=== PATIENT | female | born 1985 | race African-American/Black ===

== ENCOUNTER 2017-08-09 17:44 | Emergency (ER) | payer OTHER ==
[~2017-08-09] VITALS: Ht 167.6 cm; Wt 116.7 kg
[2017-08-09 17:47] VITALS: TEMP 36.8; Ht 167.6 cm; Wt 116.7 kg
[2017-08-09] MEDS ORDERED: KETOROLAC TROMETHAMINE 60 MG/2 ML VIAL IM STA (17:55)
[2017-08-09] MEDS ORDERED: HYDROCODONE/ACETAMOPHEN 5/325MG TAB PO STA (17:55)
[2017-08-09] MEDS ORDERED: CYCLOBENZAPRINE HCL 10 MG TAB PO STA (17:55)
--- NOTE | 2017-08-09 18:29 | EMERGENCY ROOM VISIT NOTE ---
ED Visit Note First contact with patient: 17:51 CHIEF COMPLAINT: Low back pain HISTORY OF PRESENT ILLNESS: This 31-year-old female presents the ER with chief complaint of low back pain. The patient states that she woke up yesterday with the back pain. She states it is worse with movement. She denies any pain radiating down her legs or any numbness and tingling in her lower extremities. The patient denies any loss of bowel or bladder control or any saddle anesthesia. The patient denies any urinary symptoms. The patient denies any known injury although she does admit to lifting a box of blood or the day before at work. She does not know if this is what caused the pain. She took ibuprofen 800 mg at home without any relief of the pain. She currently rates the pain at a 9 out of 10. REVIEW OF SYSTEMS: 6 system review was performed and was negative unless stated otherwise in history of present illness. PMH: The patient is healthy; cholecystectomy, skin problems, milk ducts removed SOCIAL HISTORY: Patient admits to tobacco use but denies any alcohol use. PHYSICAL EXAM: Vital Signs normal: Reviewed Nurse's notes and agree. GEN.: 31- year-old obese female appears in no acute distress. MENTAL STATUS: Alert and oriented 3 LUMBAR SPINE: No gross bony abnormality noted. Patient is nontender to palpation over the spinous processes. She is nontender tender to palpation over the spinous processes but tender to palpation in the paravertebral regions left greater than right. The patient has full range of motion of the lumbar spine with pain elicited with flexion and left lateral bending and left rotation. Muscle strength is 5 out of 5 bilateral lower extremities and symmetrical. NEURO: Patient is able to heel and toe walk without difficulty. I lateral patellar and Achilles reflexes are 2+. Sensation is intact to pinprick bilateral lower extremities. Negative straight leg raise bilaterally. EMERGENCY DEPARTMENT COURSE: The patient was evaluated. The patient was given Toradol 60 mg IM, Flexeril 10 mg by mouth and [place] 5/325 mg 2 tablets by mouth for pain. The patient was reevaluated and was feeling much better. The patient was discharged home with a friend driving.. DIAGNOSIS: Lumbar strain DISCHARGE INSTRUCTIONS AND TREATMENT: Ibuprofen 600 mg every 6 hours with food for pain. Rx is given for [place] 5/325 mg. 1-2 tablets every 6 hours as needed for more severe pain. Dispense [address] taking the [place]. Patient was also given Rx for Flexeril 10 mg. One tablet p.o. every 8 hours for muscle spasms. Dispense [address] taking the Flexeril. Avoid staying in any one position for an extended period of time. If symptoms persist or worsen, follow up with your family doctor for referral for additional testing. Current/Historical Medications No Active Prescriptions or Reported Meds Allergies Coded Allergies: No Known Allergies (Unverified , 08/09/17) Vital Signs Date Time Temp Pulse Resp B/P (MAP) Pulse Ox O2 Delivery O2 Flow Rate FiO2 08/09/17 17:47 36.8 109 17 136/81 99 Room Air Medications Administered Medications (Trade) Dose Ordered Sig/Sravani Route Start Time Stop Time Status Last Admin Dose Admin Cyclobenzaprine HCl (Flexeril Tab) 10 mg NOW STAT PO 08/09/17 17:55 08/09/17 17:56 DC 08/09/17 18:03 10 MG Ketorolac Tromethamine (Toradol Inj) 60 mg NOW STAT IM 08/09/17 17:55 08/09/17 17:56 DC 08/09/17 18:04 60 MG Acetaminophen/ Hydrocodone Bitart ([place] 5/325 Tab) 2 tab NOW STAT PO 08/09/17 17:55 08/09/17 17:57 DC 08/09/17 18:04 2 TAB Departure Information Prescriptions No Active Prescriptions or Reported Meds Referrals No Doctor, Assigned (PCP) Patient Instructions [facility]
[2017-08-09] MEDS ORDERED: CYCL10TA6 PO (18:31)
[2017-08-09] MEDS ORDERED: HYDR-5688 PO (18:31)
[2017-08-09 18:44] VITALS: BP 118/81; PULSE 86; O2SAT 99
== END 2017-08-09 18:46 | disposition home or self-care (01) ==
LOC: C.EDB 17:45 → C.EDD 18:46
DX: S39.012A Strain of muscle, fascia and tendon of lower back, initial encounter (principal); X58.XXXA Exposure to other specified factors, initial encounter; F17.200 Nicotine dependence, unspecified, uncomplicated

== ENCOUNTER 2017-08-20 22:23 | Emergency (ER) | payer OTHER ==
[~2017-08-20] VITALS: Ht 167.6 cm; Wt 116.5 kg
[~2017-08-20 22:23] MED LIST: HYDR-5688 PO
[2017-08-20 22:29] VITALS: BP 163/113; PULSE 87; TEMP 37.4; O2SAT 99; Ht 167.6 cm; Wt 116.5 kg
[2017-08-20] MEDS ORDERED: XYLOCAINE 1%/SOD BICARB 20 ML VIAL INFIL ONE (23:00)
--- NOTE | 2017-08-20 23:22 | EMERGENCY ROOM VISIT NOTE ---
ED Visit Note First contact with patient: 22:33 CHIEF COMPLAINT: Infection of the right labia HISTORY OF PRESENT ILLNESS: This 31-year-old female patient presents to the emergency department 2 days after they noticed a hard, red, tender area on the right labia. It is slowly getting larger, more painful and tender. No fever, chills, or loss of appetite. There has been no drainage from the area. There was no injury to the area preceding the infection. They rate the pain as sharp and 7/10. Tetanus shot is up to date. The patient was seen at urgent care 2 days ago, and was told that she did not need antibiotics, and states urgent care told her that they would not drain an abscess in that area, as it is too sensitive. The patient was advised to complete warm soaks at home and follow up outpatient. The patient states she has been doing some soaks, but they have not been helping significantly. The patient presents today desiring drainage of the wound. She states urgent care advised her to come here to the emergency department to have this procedure performed. The patient is not diabetic. The patient has no history of subcutaneous abscesses. 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 She states she recently moved to the [facility]. She has had no systemic symptoms including fever, chills, nausea, vomiting, body aches, fatigue, or others. REVIEW OF SYSTEMS: A 6 system review of systems was performed with positives and pertinent negatives listed in the history of present illness. All other systems were reviewed and are negative. ALLERGIES: None MEDICATIONS: None PMH: None SOCIAL HISTORY: Lives locally. She denies drug, alcohol use. She admits to smoking one pack of cigarettes per day. PHYSICAL EXAM: Vital Signs: Reviewed Nurse's notes, vital signs stable. GENERAL : This is a 31-year-old obese black female, no acute distress, non toxic in appearance, well-developed well-nourished. SKIN: There is an erythematous indurated area on the right labia which measures about 0.5 cm in diameter. It is fluctuant but there is no pointing or drainage. There is a mild zone of inflammation around it but no lymphangitis. Capillary refill less than 2 seconds. EMERGENCY DEPARTMENT COURSE: I examined the patient. Verbal consent was obtained to perform the procedure. After saline and Betadine cleansing and 1 mL of 1% buffered lidocaine anesthesia, the abscess was incised with a number 11 scalpel blade. A small amount of purulent material was released with more expressed by pressure. There was not enough drainage to obtain a culture. The abscess cavity was further probed with a needle motorcoach driver and the deep pocket expressed. The abscess cavity was then copiously irrigated with sterile saline under pressure. The area was cleaned with sterile saline and dressed with bacitracin and a gynecological pad. The patient tolerated the procedure well. The patient was discharged home in stable condition. She was encouraged to follow up closely with her newspaper carriers supervisor outpatient. 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 I advised her that she could work, and encouraged her to wear a pad and change it frequently to keep the area clean and dry. I did provide the patient with a work note for tonight, but did advise her that she could go to work tomorrow. Again, I did encourage the patient to take plenty of menstrual pads, and change them frequently to prevent the moisture from worsening an infection. I attest that I have personally reviewed the patient's current medication list. Blood Pressure Screening: Patient was found to have a slightly elevated blood pressure due to circumstances. I do not believe that the patient requires hypertension monitoring. DIFFERENTIAL DIAGNOSIS: Bartholin's cyst, abscess, cellulitis, STD, malignancy, and others DIAGNOSIS: Bartholin's cyst with infection Current/Historical Medications No Active Prescriptions or Reported Meds Allergies Coded Allergies: No Known Allergies (Unverified , 08/20/17) Vital Signs Date Time Temp Pulse Resp B/P (MAP) Pulse Ox O2 Delivery O2 Flow Rate FiO2 08/20/17 22:29 37.4 87 16 163/113 99 Room Air Departure Information Impression Primary Impression: Bartholin cyst Dispostion Home / Self-Care Condition GOOD Prescriptions No Active Prescriptions or Reported Meds Referrals Mary Puga PA-C (PCP) Mauricio Luciano D.O. Patient Instructions ED Bartholins Cyst Mohinder, My [facility] Additional Instructions You were seen in the emergency department today for a Bartholin's cyst. This was opened and drained. A very mild amount of purulent fluid and blood were expressed, but there does not seem to be any significant or severe infection. Please follow up with your newspaper carriers supervisor in 2-3 days for recheck and further management of the abscess. Please keep the area clean and dry. I do recommend changing gynecological pads every hour to keep the area clean. You may consider warm baths or Epsom soaks to help with pain and to help with drainage. Return to the emergency department for significant redness, pain, purulent drainage, fever, chills, nausea, vomiting, or other concerning symptoms.
== END 2017-08-20 23:28 | disposition home or self-care (01) ==
LOC: C.EDB 22:24 → C.EDC 23:28
DX: N75.1 Abscess of Bartholin's gland (principal); F17.210 Nicotine dependence, cigarettes, uncomplicated

== ENCOUNTER 2017-08-21 01:10 | Emergency (ER) | payer OTHER ==
[~2017-08-21] VITALS: Ht 167.6 cm; Wt 116.6 kg
[2017-08-21 01:17] VITALS: Ht 167.6 cm; Wt 116.6 kg
[2017-08-21] MEDS ORDERED: IBUPROFEN 600 MG TAB PO STA (01:29)
[2017-08-21 01:37] VITALS: BP 145/96; PULSE 97; TEMP 37; O2SAT 99
--- NOTE | 2017-08-21 23:51 | EMERGENCY ROOM VISIT NOTE ---
History First contact with patient: 01:18 Chief Complaint: WOUND RECHECK Stated Complaint: ABCESS CUT OPEN Nursing Triage Summary: pt had a bartholin cyst drained here 2 hours ago. c/o increased pain. History of Present Illness The patient is a 31 year old female who presents to the Emergency Room perivaginal pain after incision and drainage of a Bartholin's cyst roughly 3 hours ago. The patient is requesting a note for work today. Evidently after being discharged more than 2 hours ago from the emergency department she went to another room, where a friend is being seen, and has remained in the department. She was given a note for work for one day, but would like one for several days. She did take Tylenol about an hour ago. She rates her pain a 10/ 10. Review of Systems More than 10 systems were reviewed and otherwise negative with the exception of history of present illness. Past Medical/Surgical History No chronic medical disease Family History No pertinent family history Social History Smoking Status: Never Smoker Occupation Status: employed Current/Historical Medications No Active Prescriptions or Reported Meds Physical Exam Vital Signs Date Time Temp Pulse Resp B/P (MAP) Pulse Ox O2 Delivery O2 Flow Rate FiO2 08/21/17 01:37 37.0 97 20 145/96 99 08/21/17 01:17 37.0 97 20 145/96 99 Room Air Physical Exam VITALS: Vitals are noted on the nurse's note and reviewed by myself. Vital signs stable. GENERAL: Well-developed, well-nourished, black female, who is in no acute distress and resting comfortably. Patient is cooperative with the examination. HEART: Regular rate and rhythm without murmurs gallops or rubs. LUNGS: Clear to auscultation bilaterally without wheezes, rales or rhonchi. No retractions or accessory muscle use. ABDOMEN: Positive normal bowel sounds x 4. Soft, nontender, without masses or organomegaly. No guarding or rebound tenderness. NEURO: Patient was alert and oriented to person place and time. CN II through XII grossly intact. Medical Decision & Procedures Medications Administered Medications (Trade) Dose Ordered Sig/Sravani Route Start Time Stop Time Status Last Admin Dose Admin Ibuprofen (Motrin Tab) 600 mg NOW STAT PO 08/21/17 01:29 08/21/17 01:30 DC 08/21/17 01:35 600 MG ED Course Physical exam and history were performed. Nursing notes, EMR, and Medication List were personally reviewed. Patient appears to have pain following incision and drainage of a Bartholin's cyst. The patient was given a work note from her visit a few hours ago, and she is essentially here requesting another note for work for a much longer period of time. I do not feel this is reasonable. I will provide her ibuprofen here in the department. 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 The chart was completed utilizing [employer] Speech Voice Recognition Software. Grammatical errors, random word insertions, pronoun errors, and incomplete sentences are an occasional consequence of this system due to software limitations, ambient noise, and hardware issues. Any formal questions or concerns about the content, text, or information contained within the body of this dictation should be directly addressed to the provider for clarification. . Medical Decision Differential diagnosis includes, but is not limited to: Bartholin's gland abscess, postprocedural pain, malingering, and others Impression Primary Impression: Encounter for wound re-check Departure Information Dispostion Home / Self-Care Condition GOOD Prescriptions No Active Prescriptions or Reported Meds Referrals No Doctor, Assigned (PCP) Forms HOME CARE DOCUMENTATION FORM, IMPORTANT VISIT INFORMATION Patient Instructions My [facility] Additional Instructions You were seen and evaluated today on an emergency basis only. This is not a substitute for, or an effort to provide, complete comprehensive medical care. It is not possible to recognize and treat all injuries or illnesses in a single emergency department visit. For this reason it is recommended that you followup with CASTING WHEEL OPERATOR HELPER with any ongoing or persistent symptoms. For baseline pain relief you may alternate ibuprofen and acetaminophen every 4 hours for pain control. Take 600 mg ibuprofen (Advil) and then 4 hours later take 1000 mg acetaminophen (Tylenol). Do not take more than 3000 mg acetaminophen in a single day. You are welcome to return to the emergency department anytime with new, worsening, or concerning symptoms.
== END 2017-08-21 01:38 | disposition home or self-care (01) ==
LOC: C.EDB 01:11 → C.EDA 01:38
DX: Z09 Encounter for follow-up examination after completed treatment for conditions other than malignant neoplasm (principal)

== ENCOUNTER 2017-09-13 21:59 | Emergency (ER) | payer OTHER ==
[~2017-09-13] VITALS: Ht 167.6 cm; Wt 114.1 kg
[2017-09-13 22:20] VITALS: TEMP 37; Ht 167.6 cm; Wt 114.1 kg
[2017-09-13] MEDS ORDERED: ACETAMINOPHEN 500 MG TAB PO STA (23:12)
--- NOTE | 2017-09-13 23:18 | EMERGENCY ROOM VISIT NOTE ---
History Report prepared by Raymundo: Domenico Bettencourt Under the Supervision of: Dr. Angelina Mendoza D.O. First contact with patient: 23:00 Chief Complaint: OTHER COMPLAINT Stated Complaint: LUMP BEHIND NIPPLE History of Present Illness The patient is a 31 year old female who presents to the Emergency Room with complaints of worsening pain in the left breast that began 4 days prior to arrival. When the patient's pain began she noticed a small lump "behind" her left nipple. Since she first experienced the pain it has progressively worsened , and the lump has grown. She estimates that the lump is now the size of a quarter. The lump is also warm to the touch. The patient had a similar issue in the past and notes that she had the lump drained in the Emergency Department. She has no family history of breast issues, but she has had a surgery in the past to remove a milk duct from each breast. She has had a mammogram that was unremarkable. The patient notes that she has not had a menstrual cycle in over nine months and is diagnosed with polycystic ovarian syndrome. Patient denies chance of . States she has never breast-fed. Source of History: patient Onset: 4 days prior to arrival Position: chest (left breast) Quality: other (lump in left breast) Timing: worsening Review of Systems See HPI for pertinent positives & negatives. A total of 10 systems reviewed and were otherwise negative. Past Medical & Surgical Surgical Problems: (1) breast duct excision (2) History of cholecystectomy Family History Diabetes mellitus FHx: cancer Hypertension Social History Smoking Status: Current Every Day Smoker Marital Status: single Housing Status: lives with friends Occupation Status: employed Current/Historical Medications Scheduled Cephalexin Monohydrate (Keflex), 500 MG PO QID Allergies Coded Allergies: No Known Allergies (Unverified , 09/13/17) Physical Exam Vital Signs Date Time Temp Pulse Resp B/P (MAP) Pulse Ox O2 Delivery O2 Flow Rate FiO2 09/14/17 01:33 62 20 118/72 98 Room Air 09/14/17 00:22 57 18 120/78 99 Room Air 09/13/17 22:20 37.0 77 20 136/86 100 Room Air Physical Exam GENERAL: Obese. alert, well appearing, well nourished, no distress, non-toxic EYE EXAM: normal conjunctiva, PERRL and EOM's grossly intact OROPHARYNX: no exudate, no erythema, lips, buccal mucosa, and tongue normal and mucous membranes are moist NECK: supple, no nuchal rigidity, no adenopathy, non-tender LUNGS: Clear to auscultation. Normal chest wall mechanics BREAST: RIGHT BREAST: Non-tender, no erythema, no discharge. No palpable masses. LEFT BREAST: There is tenderness along the inferior aspect of the areola between 5 and 7 o'clock. There is a 1-2 centimeter mass palpable along the inferior areola without discharge. NO overlying warmth. No erythema. Breast is otherwise unremarkable. No additional masses. There is no palpable axillary lymphadenopathy. HEART: no murmurs, S1 normal and S2 normal ABDOMEN: abdomen soft, non-tender, normo-active bowel sounds, no masses, no rebound or guarding. SKIN: no rashes and no bruising UPPER EXTREMITIES: upper extremities are grossly normal. LOWER EXTREMITIES: No pitting edema. NEURO EXAM: Normal sensorium Medical Decision & Procedures ER Provider Diagnostic Interpretation: Radiology results have been interpreted by the radiologist and reviewed by me. US OTHER -- BREAST LIMITED UNILATERAL: Indeterminate hypoechoic mass seein in region of palpable abnormality. No internal vascularity. Measures 1.9 x 0.6 x 2.3 cm. Hematoma and abscess are in the differential though ultimately indeterminate. Recommended follow-up. Radiologist: Martin Ventura M.D. Laboratory Results 09/13/17 23:27 Red Blood Count 5.42, Mean Corpuscular Volume 82.1, Mean Corpuscular Hemoglobin 27.1, Mean Corpuscular Hemoglobin Concent 33.0, Mean Platelet Volume 10.3, Neutrophils (%) (Auto) 57.1, Lymphocytes (%) (Auto) 31.5, Monocytes (%) (Auto) 5.8, Eosinophils (%) (Auto) 5.0, Basophils (%) (Auto) 0.3, Neutrophils # (Auto) 6.79, Lymphocytes # (Auto) 3.75, Monocytes # (Auto) 0.69, Eosinophils # (Auto) 0.59, Basophils # (Auto) 0.03 Test 09/13/17 23:27 White Blood Count 11.89 K/uL (4.8-10.8) Red Blood Count 5.42 M/uL (4.2-5.4) Hemoglobin 14.7 g/dL (12.0-16.0) Hematocrit 44.5 % (37-47) Mean Corpuscular Volume 82.1 fL (80-100) Mean Corpuscular Hemoglobin 27.1 pg (25-34) Mean Corpuscular Hemoglobin Concent 33.0 g/dl (32-36) Platelet Count 277 K/uL (130-400) Mean Platelet Volume 10.3 fL (7.4-10.4) Neutrophils (%) (Auto) 57.1 % Lymphocytes (%) (Auto) 31.5 % Monocytes (%) (Auto) 5.8 % Eosinophils (%) (Auto) 5.0 % Basophils (%) (Auto) 0.3 % Neutrophils # (Auto) 6.79 K/uL (1.4-6.5) Lymphocytes # (Auto) 3.75 K/uL (1.2-3.4) Monocytes # (Auto) 0.69 K/uL (0.11-0.59) Eosinophils # (Auto) 0.59 K/uL (0-0.5) Basophils # (Auto) 0.03 K/uL (0-0.2) RDW Standard Deviation 43.0 fL (36.4-46.3) RDW Coefficient of Variation 14.5 % (11.5-14.5) Immature Granulocyte % (Auto) 0.3 % Immature Granulocyte # (Auto) 0.04 K/uL (0.00-0.02) Laboratory results per my review. Medications Administered Medications (Trade) Dose Ordered Sig/Sravani Route Start Time Stop Time Status Last Admin Dose Admin Acetaminophen (Tylenol Tab) 1,000 mg NOW STAT PO 09/13/17 23:12 09/13/17 23:13 DC 09/13/17 23:19 1,000 MG Cephalexin Monohydrate (Keflex Cap) 500 mg NOW ONCE PO 09/14/17 01:00 09/14/17 01:01 DC 09/14/17 01:18 500 MG Tramadol HCl (Ultram Tab) 50 mg NOW STAT PO 09/14/17 00:55 09/14/17 00:57 DC 09/14/17 01:18 50 MG Tramadol HCl (Ultram Home Pack) 1 homepack UD ONCE PO 09/14/17 01:15 09/14/17 01:16 DC 09/14/17 01:22 1 HOMEPACK ED Course 2302: The patient was evaluated in room C5. A complete history and physical exam was performed. 2312: Ordered Tylenol 1000 mg PO. 0055: Ordered Ultram 50 mg PO. 0100: Ordered Keflex 500 mg PO. 0115: Ordered Tramadol HCl 1 homepack PO. 0049: I reevaluated the patient at this time. I informed her on the findings of her imaging studies. 0101: Upon reevaluation, the patient is feeling better. I discussed the findings and the treatment plan with the patient. She verbalizes agreement and understanding. The patient was discharged home. Medical Decision Differential Diagnosis includes; Mastitis, abscess, blocked milk duct, mass, cyst, and fibrocystic breast tissue. Discussed patient all results. Given prior history and findings on ultrasound, patient started on antibiotics prophylactically. Discussed close follow-up with [employer] [facility], possible need for additional imaging, symptoms to watch and return for, she verbalized understanding was agreeable with plan. Medication Reconcilliation Current Medication List: was personally reviewed by me Blood Pressure Screening Patient's blood pressure: Normal blood pressure Impression Primary Impression: Breast abscess Scribe Attestation The scribe's documentation has been prepared under my direction and personally reviewed by me in its entirety. I confirm that the note above accurately reflects all work, treatment, procedures, and medical decision making performed by me. Departure Information Dispostion Home / Self-Care Prescriptions Cephalexin Monohydrate (Keflex) 500 Mg Cap 500 MG PO QID, #28 CAP Prov: Angelina Mendoza, DO 09/14/17 Referrals No Doctor, Assigned (PCP) Patient Instructions My [facility] Additional Instructions Please call and follow-up with your scada technician regarding your left breast. Please take the antibiotics as prescribed. If you have any worsening pain, develop warmth/redness over the breast, have increased discharge or bleeding from the breast, you develop fevers/chills, vomiting, or you have any other new or concerning symptoms, please return to the emergency room.
[2017-09-13 23:52] LABS: BASO % 0.3 %; BASO ABS # 0.03 K/uL (0-0.2); EOS ABS # 0.59 K/uL (0-0.5); HEMATOCRIT 44.5 % (37-47); HEMOGLOBIN 14.7 g/dL (12.0-16.0); IG# 0.04 K/uL (0.00-0.02); LYMPH % 31.5 %; LYMPH ABS # 3.75 K/uL (1.2-3.4); MEAN CELL VOLUME 82.1 fL (80-100); MEAN CORPUSCULAR HEMOGLOBIN 27.1 pg (25-34); MEAN PLATELET VOLUME 10.3 fL (7.4-10.4); MONO % 5.8 %; MONO ABS # 0.69 K/uL (0.11-0.59); NEUT % 57.1 %; NEUT ABS # 6.79 K/uL (1.4-6.5); PLATELET COUNT 277 K/uL (130-400); RED CELL DISTRIBUTION WIDTH CV 14.5 % (11.5-14.5); WHITE BLOOD COUNT 11.89 K/uL (4.8-10.8)
[2017-09-14] MEDS ORDERED: TRAMADOL HCL 50 MG TAB PO STA (00:55)
[2017-09-14] MEDS ORDERED: CEPHALEXIN MONOHYDRATE 250 MG CAP PO ONE (01:00)
[2017-09-14] MEDS ORDERED: CEPH500C PO (01:04)
[2017-09-14] MEDS ORDERED: TRAMADOL HCL 50 MG HOME PACK PO ONE (01:15)
[2017-09-14 01:33] VITALS: BP 118/72; PULSE 62; O2SAT 98
--- NOTE | 2017-09-14 07:09 | DIAGNOSTIC IMAGING REPORT ---
LEFT BREAST ULTRASOUND CLINICAL HISTORY: Palpable left breast lump. COMPARISON STUDY: No previous studies for comparison. TECHNIQUE: Targeted sonography of the left breast at site of palpable lump was performed. FINDINGS: Note is made of a 2.3 x 1.9 x 0.6 cm oval-shaped hypoechoic focus with circumscribed margins within the left periareolar soft tissues at the 7:00 position. This corresponds to the palpable abnormality. This contains no color flow. IMPRESSION: 2.3 x 1.9 x 0.6 cm oval-shaped hypoechoic left periareolar abnormality at the 7:00 position. The appearance favors an abscess although a small hematoma could appear similar. A mass is considered much less likely however sonographic follow to ensure resolution is recommended with a follow-up ultrasound in one month. Electronically signed by: Oliver Hooper M.D. 09/14/2017 7:08 AM Dictated Date/Time: 09/14/2017 7:04 AM
== END 2017-09-14 01:35 | disposition home or self-care (01) ==
LOC: C.EDB 22:00 → C.EDC 09-14 01:35
DX: N61.1 Abscess of the breast and nipple (principal); E28.2 Polycystic ovarian syndrome; F17.200 Nicotine dependence, unspecified, uncomplicated; Z83.3 Family history of diabetes mellitus; Z80.9 Family history of malignant neoplasm, unspecified; Z82.49 Family history of ischemic heart disease and other diseases of the circulatory system

== ENCOUNTER 2017-11-28 00:22 | Emergency (ER) | payer OTHER ==
[~2017-11-28] VITALS: Ht 167.6 cm; Wt 111.0 kg
[2017-11-28 00:32] VITALS: TEMP 37.3; Ht 167.6 cm; Wt 111.0 kg
[2017-11-28] MEDS ORDERED: KETOROLAC TROMETHAMINE 60 MG/2 ML VIAL IM STA (01:02)
[2017-11-28] MEDS ORDERED: METH4PAK PO (01:04)
[2017-11-28] MEDS ORDERED: DEXAMETHASONE **PF** INJ 10 MG/ML VIAL PO ONE (01:15)
[2017-11-28 01:22] VITALS: BP 142/80; PULSE 82; O2SAT 97
--- NOTE | 2017-11-28 04:42 | EMERGENCY ROOM VISIT NOTE ---
History First contact with patient: 00:50 Chief Complaint: BACK PAIN Stated Complaint: HURTING BACK W SHOOTING PAIN DOWN LFT LEG History of Present Illness The patient is a 32 year old female who presents to the Emergency Room with complaints of low back pain that radiates down her left leg for the past few days described as aching, ranging in severity currently 6 out of 10. Movement makes it worse nothing makes it better. No trauma to the area. 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 Patient denies loss of bowel or bladder control, saddle anesthesia, fever, chills, IV drug abuse, leg weakness, abdominal pain, chest pain, dyspnea. Patient has had back pain before but this is slightly worse. Review of Systems An 10 system review of systems was completed with positives and pertinent negatives listed in the HPI. Past Medical/Surgical History Surgical Problems: (1) breast duct excision (2) History of cholecystectomy Family History Diabetes mellitus FHx: cancer Hypertension Social History Smoking Status: Current Every Day Smoker Marital Status: single Housing Status: lives with friends Occupation Status: employed Current/Historical Medications Scheduled Methylprednisolone (Medrol Dosepak), 0 PO DAILY Physical Exam Vital Signs Date Time Temp Pulse Resp B/P (MAP) Pulse Ox O2 Delivery O2 Flow Rate FiO2 11/28/17 01:22 82 20 142/80 97 11/28/17 00:32 37.3 86 20 148/87 97 Room Air Physical Exam VITALS: Vitals are noted on the nurse's note and reviewed by myself. Vital signs hypertensive GENERAL: Pleasant female, in no acute distress, nondiaphoretic, well-developed well-nourished. SKIN: Capillary reflex less than 2 seconds. HEENT: Normocephalic. PERRLA. EOMI. Nares patent. Mucous membranes moist. Neck is supple without nuchal rigidity. HEART: Regular rate and rhythm without murmurs gallops or rubs. LUNGS: Clear to auscultation bilaterally without wheezes, rales or rhonchi. No retractions or accessory muscle use. ABDOMEN: Positive bowel sounds x 4. Normal tympanic percussion. Soft, nontender, without masses or organomegaly. Qureshi sign negative. No guarding or rebound tenderness. MUSCULOSKELETAL: No gross musculoskeletal defects. No pedal edema. No calf tenderness. No thoracic or lumbar tenderness on exam. Positive straight leg raise on the left. Patient can walk on toes and heels. NEURO: Patient was alert and oriented to person place and time. Normal sensation to light and sharp touch. Deep tendon reflexes 2+ patella bilaterally. No focal neurological deficits. Medical Decision & Procedures Medications Administered Medications (Trade) Dose Ordered Sig/Sravani Route Start Time Stop Time Status Last Admin Dose Admin Ketorolac Tromethamine (Toradol Inj) 60 mg NOW STAT IM 11/28/17 01:02 11/28/17 01:03 DC 11/28/17 01:15 60 MG Dexamethasone Sodium Phosphate (Dexamethasone Inj Pf) 10 mg NOW ONCE PO 11/28/17 01:15 11/28/17 01:16 DC 11/28/17 01:15 10 MG ED Course Prior records/ancillary studies reviewed. Triage Nursing notes reviewed. The patient's history was concerning for back pain. Differential diagnosis: Etiologies such as musculoskeletal, disc herniation, fracture, aortic disease, metastatic disease, cord compression, discitis, infection, renal colic, gastrointestinal, acute exacerbation of chronic back pain, sciatica, cauda equina, as well as others were entertained. Physical findings: As above. No focal neurologic findings noted. ER treatment provided: Toradol, Decadron On reassessment the patient felt better. Diagnostics interpreted by me: Deferred This appears to be consistent with lumbar radiculopathy. Patient was neurovascularly and neurologically intact. She is well-appearing. She had no deficits on exam. She is advised to yoga and/or Pilates and to follow-up with family care / orthopedic spine for further evaluation and treatment for her back pain or here in the ER sooner for severe pain, numbness, tingling, inability to walk, worsening signs or symptoms or as needed. The patient's physical examination and detailed history did not reveal any red flags for back pain such as those listed in the differential diagnosis. Therefore advanced diagnostics and consultations were felt to be unwarranted. By the evaluation outlined above emergent etiologies such as fracture, aortic disease, metastatic disease, infection, renal colic, gastrointestinal, cord compression, cauda equina, as well as others were deemed relatively unlikely. The pt informed about the findings as listed above. All questions were answered and pleased with the treatment. Return instructions were outlined and the patient was discharged in stable condition. Outpatient prescription management: Medrol Dosepak Referral: The patient was referred back to primary care physician for follow-up in 2 to 3 days for a recheck of the current condition. The chart was completed utilizing [employer] Speech voice recognition software. Grammatical errors, random word insertions, pronoun errors, and incomplete sentences are an occassional consequence of this system due to software limitations, ambient noise, and hardware issues. Any formal questions or concerns about the content, text, or information contained within the body of this dictation should be directly addressed to the physician assistant teacher for clarification. Medical Decision As above Medication Reconcilliation Current Medication List: was personally reviewed by me Blood Pressure Screening Patient's blood pressure: Elevated blood pressure Blood pressure disposition: Elevated BP felt to be situational Impression Primary Impression: Lumbar radiculopathy, acute Departure Information Dispostion Home / Self-Care Condition GOOD Prescriptions Methylprednisolone (MEDROL DOSEPAK) 4 Mg Luca 0 PO DAILY, #1 PKT Prov: Loraine Reid .FRANDY 11/28/17 Referrals Audi TaylorD.O. Forms HOME CARE DOCUMENTATION FORM, Work Instructions, Return To Work: 3 days IMPORTANT VISIT INFORMATION Patient Instructions Lumbar Radiculopathy, [facility] Additional Instructions Recommend yoga and/or Pilates to strengthen up your core. Steroid pack as prescribed. Ibuprofen(Motrin, Advil) may be used for fever or pain. Use 600mg every six hours as needed. Take with food. Avoid using more than 2400mg in a 24 hour period. Do not use 2400mg per day for more than three consecutive days without physician direction. Prolonged inappropriate use can lead to stomach upset or ulcers. This medication can be taken if you need to drive, work, or perform activities which may be dangerous when taking narcotic pain medication. (AND/OR) Acetaminophen(Tylenol) may be used for fever or pain. Use 1000mg every six hours as needed. Avoid using more than 3000mg in a 24 hour period. This medication can be taken if you need to drive, work, or perform activities which may be dangerous when taking narcotic pain medication. Rest and avoid heavy lifting until your symptoms resolve and then gradually return to full activity. A good rule of thumb is if it hurts your back to perform a certain activity, then it should be avoided until you are healthy again. A heating pad, warm compresses, or a hot shower may help with tight muscles and can be done several times a day as needed. Continue current medications. Return to the ER immediately for any numbness, tingling, severe pain, loss of control of your bowels or bladder, inability to walk, or as needed. Follow up with your primary care physician/orthopedics spine within 3-5 days for a recheck of your current condition. Work Instructions Return To Work: 3 days
== END 2017-11-28 01:24 | disposition home or self-care (01) ==
LOC: C.EDB 00:23 → C.EDC 01:24
DX: M54.16 Radiculopathy, lumbar region (principal); R03.0 Elevated blood-pressure reading, without diagnosis of hypertension; F17.200 Nicotine dependence, unspecified, uncomplicated; Z83.3 Family history of diabetes mellitus; Z82.49 Family history of ischemic heart disease and other diseases of the circulatory system